=== PATIENT | female | born 2000 | race African-American/Black ===

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

== ENCOUNTER 2019-01-03 12:56 | Emergency (ER) | payer MEDICAID, OTHER ==
[~2019-01-03] VITALS: Ht 165.1 cm; Wt 52.2 kg
[2019-01-03 14:31] LABS: BILIRUBIN,URINE NEGATIVE (NEG); CLARITY,URINE CLEAR; COLOR,URINE YELLOW; NITRITE,URINE NEGATIVE (NEG); PH,URINE 7.5; PROTEIN,URINE NEGATIVE (NEG-TRACE)
[2019-01-03 14:40] LABS: SQUAMOUS EPITHELIAL CELL,UR MOD /LPF
[2019-01-03 14:41] LABS: BACTERIA,URINE MODERATE /HPF (0-FEW); RBC,URINE 0 /HPF (0-2)
--- NOTE | 2019-01-03 14:41 | PHYS DOC ---
Past Medical History Past Medical History: No Pertinent History, Other Additional Past Medical Histor: PRIOR DEMISE AT 5 MONTHS Smoking: Quit Less Than 1 Year Alcohol Use: None Drug Use: None Adult General Chief Complaint Chief Complaint: ABDOMINAL PAIN IN HPI HPI Patient is a 18 year old female presents with abdominal pain has been ongoing since last night. The patient states that she has proximal with 15 weeks . Denies any vaginal bleeding or vaginal discharge. Reports her pain is 9 out of 10 in severity sharp. Has not Taken anything for it at home. Review of Systems Review of Systems Constitutional: Denies fever or chills [] Eyes: Denies change in visual acuity, redness, or eye pain [] HENT: Denies nasal congestion or sore throat [] Respiratory: Denies cough or shortness of breath [] Cardiovascular: No additional information not addressed in HPI [] GI: Reports abdominal pain denies nausea, vomiting, bloody stools and diarrhea [] : Denies dysuria or hematuria [] Musculoskeletal: Denies back pain or joint pain [] Integument: Denies rash or skin lesions [] Neurologic: Denies headache, focal weakness or sensory changes [] Endocrine: Denies polyuria or polydipsia [] Complete systems were reviewed and found to be within normal limits, except as documented in this note. Current Medications Current Medications Current Medications Medications (Trade) Dose Ordered Sig/Jaxon Start Time Stop Time Status Last Admin Dose Admin Acetaminophen (Tylenol) 1,000 mg 1X ONCE 01/03/19 15:00 01/03/19 15:01 DC 01/03/19 15:26 1,000 MG Allergies Allergies Allergies Coded Allergies Type Severity Reaction Last Updated Verified Penicillins Allergy Intermediate Hives 08/18/18 Yes Physical Exam Physical Exam Constitutional: Well developed, well nourished, no acute distress, non-toxic appearance. [] HENT: Normocephalic, atraumatic, bilateral external ears normal, oropharynx moist, no oral exudates, nose normal. [] Eyes: PERRLA, EOMI, conjunctiva normal, no discharge. [] Neck: Normal range of motion, no tenderness, supple, no stridor. [] Cardiovascular:Heart rate regular rhythm, no murmur [] Lungs & Thorax: Bilateral breath sounds clear to auscultation [] Abdomen: Bowel sounds normal, soft, right lower quadrant tenderness, no masses, no pulsatile masses. [] Skin: Warm, dry, no erythema, no rash. [] Back: No tenderness, no CVA tenderness. [] Extremities: No tenderness, no cyanosis, no clubbing, ROM intact, no edema. [] Neurologic: Alert and oriented X 3, normal motor function, normal sensory function, no focal deficits noted. [] Psychologic: Affect normal, judgement normal, mood normal. [] Current Patient Data Vital Signs Vital Signs Date Time Temp Pulse Resp B/P (MAP) Pulse Ox O2 Delivery O2 Flow Rate FiO2 01/03/19 13:49 99.7 75 16 98/44 (62) 100 Room Air 99.7 Lab Values Laboratory Tests Test 01/03/19 13:55 01/03/19 14:40 Urine Collection Type Unknown Urine Color Yellow Urine Clarity Clear Urine pH 7.5 Urine Specific [place] 1.020 Urine Protein Negative mg/dL (NEG-TRACE) Urine Glucose (UA) Negative mg/dL (NEG) Urine Ketones (Stick) Negative mg/dL (NEG) Urine Blood Negative (NEG) Urine Nitrite Negative (NEG) Urine Bilirubin Negative (NEG) Urine Urobilinogen Dipstick 1.0 mg/dL (0.2 mg/dL) Urine Leukocyte Esterase Negative (NEG) Urine RBC 0 /HPF (0-2) Urine WBC 1-4 /HPF (0-4) Urine Squamous Epithelial Cells Mod /LPF Urine Bacteria Moderate /HPF (0-FEW) Urine Mucus Marked /LPF White Blood Count 7.8 x10^3/uL (4.0-11.0) Red Blood Count 3.34 x10^6/uL (3.50-5.40) L Hemoglobin 11.0 g/dL (12.0-15.5) L Hematocrit 31.6 % (36.0-47.0) L Mean Corpuscular Volume 94 fL (79-100) Mean Corpuscular Hemoglobin 33 pg (25-35) Mean Corpuscular Hemoglobin Concent 35 g/dL (31-37) Red Cell Distribution Width 13.2 % (11.5-14.5) Platelet Count 210 x10^3/uL (140-400) Neutrophils (%) (Auto) 72 % (31-73) Lymphocytes (%) (Auto) 20 % (24-48) L Monocytes (%) (Auto) 6 % (0-9) Eosinophils (%) (Auto) 2 % (0-3) Basophils (%) (Auto) 1 % (0-3) Neutrophils # (Auto) 5.6 x10^3uL (1.8-7.7) Lymphocytes # (Auto) 1.6 x10^3/uL (1.0-4.8) Monocytes # (Auto) 0.4 x10^3/uL (0.0-1.1) Eosinophils # (Auto) 0.2 x10^3/uL (0.0-0.7) Basophils # (Auto) 0.0 x10^3/uL (0.0-0.2) Maternal Serum HCG Beta Subunit 25105 mIU/mL (0-5) H Sodium Level 138 mmol/L (136-145) Potassium Level 3.4 mmol/L (3.5-5.1) L Chloride Level 105 mmol/L (98-107) Carbon Dioxide Level 25 mmol/L (21-32) Anion Gap 8 (6-14) Blood Urea Nitrogen 7 mg/dL (7-20) Creatinine 0.6 mg/dL (0.6-1.0) Estimated GFR (Cockcroft-Gault) 155.8 BUN/Creatinine Ratio 12 (6-20) Glucose Level 76 mg/dL (70-99) Calcium Level 8.7 mg/dL (8.5-10.1) Total Bilirubin 0.4 mg/dL (0.2-1.0) Aspartate Amino Transferase (AST) 11 U/L (15-37) L Alanine Aminotransferase (ALT) 11 U/L (14-59) L Alkaline Phosphatase 24 U/L (46-116) L Total Protein 6.4 g/dL (6.4-8.2) Albumin 3.0 g/dL (3.4-5.0) L Albumin/Globulin Ratio 0.9 (1.0-1.7) L Laboratory Tests 01/03/19 14:40 Laboratory Tests 01/03/19 14:40 EKG EKG [] Radiology/Procedures Radiology/Procedures [facility] [address] [place] [address] IMAGING REPORT Signed PATIENT: TRAVON DIAS ACCOUNT: [id number] : 2000 LOCATION: ER AGE: 18 SEX: F EXAM STATUS: REG ER ORD. PHYSICIAN: KOFI BURK APRN REASON: Right Side abd pain PROCEDURE: PREG MORE THAN OR EQ TO 14 WKS Examination: RIGHT LOWER QUANDRANT, PREG MORE THAN OR EQ TO 14 WKS History: Right-sided abdominal pain Comparison/Correlation: 12/01/2018 first trimester ultrasound exam FINDINGS: Single living intrauterine gestation with breech lie noted. heart rate of 158 bpm is present. Grade 1 placenta is noted at the anterior wall with fundal location. measurements include: Biparietal diameter: 3 cm corresponding to 15 weeks 4 days. Femur length of 1.82 cm corresponding to 15 weeks 3 days. Head circumference of 11.32 cm corresponding to 15 weeks 4 days. Abdominal circumference of 10 cm corresponding to 16 weeks. Age by 4 parameters corresponds to 15 weeks 5 day. EDC by average age is 06/23/2019. Gestational age by last menstrual period is 15 weeks 4 days. Cephalic index of 82.5. H/A ratio is 1.13. FL/BPD is 60.1. FL/ AC is 18.2. Imaging of the maternal right lower quadrant is unremarkable with no appendix visualized. IMPRESSION: Single living breech lie intrauterine gestation corresponding to 15 weeks 5 days by average ultrasound age. This approximates age by last menstrual period. Adequate and symmetric interval growth is noted since the prior exam. There is no appendix visualized. No suspicious maternal right lower quadrant findings. Consider further imaging assessment if clinical concern persists. Electronically signed by: Lenin Guerra MD (01/03/2019 3:01 PM) [facility] DICTATED and SIGNED BY: LENIN GUERRA MD DATE: 01/03/19 1501 [] PATIENT: TRAVON DIAS ACCOUNT: [id number] : 2000 LOCATION: ER AGE: 18 SEX: F EXAM STATUS: REG ER ORD. PHYSICIAN: KOFI BURK APRN REASON: abd pain PROCEDURE: RIGHT LOWER QUANDRANT Examination: RIGHT LOWER QUANDRANT, PREG MORE THAN OR EQ TO 14 WKS History: Right-sided abdominal pain Comparison/Correlation: 12/01/2018 first trimester ultrasound exam FINDINGS: Single living intrauterine gestation with breech lie noted. heart rate of 158 bpm is present. Grade 1 placenta is noted at the anterior wall with fundal location. measurements include: Biparietal diameter: 3 cm corresponding to 15 weeks 4 days. Femur length of 1.82 cm corresponding to 15 weeks 3 days. Head circumference of 11.32 cm corresponding to 15 weeks 4 days. Abdominal circumference of 10 cm corresponding to 16 weeks. Age by 4 parameters corresponds to 15 weeks 5 day. EDC by average age is 06/23/2019. Gestational age by last menstrual period is 15 weeks 4 days. Cephalic index of 82.5. H/A ratio is 1.13. FL/BPD is 60.1. FL/ AC is 18.2. Imaging of the maternal right lower quadrant is unremarkable with no appendix visualized. IMPRESSION: Single living breech lie intrauterine gestation corresponding to 15 weeks 5 days by average ultrasound age. This approximates age by last menstrual period. Adequate and symmetric interval growth is noted since the prior exam. There is no appendix visualized. No suspicious maternal right lower quadrant findings. Consider further imaging assessment if clinical concern persists. Electronically signed by: Lenin Guerra MD (01/03/2019 3:01 PM) [facility] DICTATED and SIGNED BY: LENIN GUERRA MD DATE: 01/03/19 1504 Course & Med Decision Making Course & Med Decision Making Pertinent Labs and Imaging studies reviewed. (See chart for details) FHT's are 160's, no vaginal bleeding, sharp abdominal pain since last night. Will get labs, ultrasound, urine. Patient is agreeable. Labs are unremarkable. Ultrasound is negative and shows no intrauterine abnormalities. Appendix is not visualized. Will do observation over further imaging as the risk to the fetus outweighs benefit. WBC is not elevated, patient is afebrile. Will have follow up with OB and return for any further issues. Dragon Disclaimer Dragon Disclaimer This electronic medical record was generated, in whole or in part, using a voice recognition dictation system. Departure Departure Impression: Primary Impression: Abdominal pain affecting Disposition: HOME, SELF-CARE Condition: STABLE Referrals: NO PCP (PCP) Patient Instructions: Abdominal Pain During Additional Instructions: Thank you for visiting [facility]. We appreciate you trusting us with your care. If any additional problems come up don't hesitate to return to visit us. Please follow up with your primary care provider so they can plan additional care if needed and know about the problem that you had. If symptoms worsen come back to the Emergency Department. Any concerning symptoms that start such as chest pain, shortness of Air, weakness or numbness on one side of the body, running high fevers or any other concerning symptoms return to the ER. Please follow up with OB on Tuesday. I have attached your labs below. Laboratory Tests [place] [address] mIU/mL 01/03/19 13:55 01/03/19 14:40 Urine Collection Type Unknown Urine Color Yellow Urine Clarity Clear Urine pH 7.5 Urine Specific [place] 1.020 Urine Protein Negative mg/dL (NEG-TRACE) Urine Glucose (UA) Negative mg/dL (NEG) Urine Ketones (Stick) Negative mg/dL (NEG) Urine Blood Negative (NEG) Urine Nitrite Negative (NEG) Urine Bilirubin Negative (NEG) Urine Urobilinogen Dipstick 1.0 mg/dL (0.2 mg/dL) Urine Leukocyte Esterase Negative (NEG) Urine RBC 0 /HPF (0-2) Urine WBC 1-4 /HPF (0-4) Urine Squamous Epithelial Cells Mod /LPF Urine Bacteria Moderate /HPF (0-FEW) Urine Mucus Marked /LPF White Blood Count 7.8 x10^3/uL (4.0-11.0) Red Blood Count 3.34 x10^6/uL (3.50-5.40) L Hemoglobin 11.0 g/dL (12.0-15.5) L Hematocrit 31.6 % (36.0-47.0) L Mean Corpuscular Volume 94 fL (79-100) Mean Corpuscular Hemoglobin 33 pg (25-35) Mean Corpuscular Hemoglobin Concent 35 g/dL (31-37) Red Cell Distribution Width 13.2 % (11.5-14.5) Platelet Count 210 x10^3/uL (140-400) Neutrophils (%) (Auto) 72 % (31-73) Lymphocytes (%) (Auto) 20 % (24-48) L Monocytes (%) (Auto) 6 % (0-9) Eosinophils (%) (Auto) 2 % (0-3) Basophils (%) (Auto) 1 % (0-3) Neutrophils # (Auto) 5.6 x10^3uL (1.8-7.7) Lymphocytes # (Auto) 1.6 x10^3/uL (1.0-4.8) Monocytes # (Auto) 0.4 x10^3/uL (0.0-1.1) Eosinophils # (Auto) 0.2 x10^3/uL (0.0-0.7) Basophils # (Auto) 0.0 x10^3/uL (0.0-0.2) Sodium Level 138 mmol/L (136-145) Potassium Level 3.4 mmol/L (3.5-5.1) L Chloride Level 105 mmol/L (98-107) Carbon Dioxide Level 25 mmol/L (21-32) Anion Gap 8 (6-14) Blood Urea Nitrogen 7 mg/dL (7-20) Creatinine 0.6 mg/dL (0.6-1.0) Estimated GFR (Cockcroft-Gault) 155.8 BUN/Creatinine Ratio 12 (6-20) Glucose Level 76 mg/dL (70-99) Calcium Level 8.7 mg/dL (8.5-10.1) Total Bilirubin 0.4 mg/dL (0.2-1.0) Aspartate Amino Transferase (AST) 11 U/L (15-37) L Alanine Aminotransferase (ALT) 11 U/L (14-59) L Alkaline Phosphatase 24 U/L (46-116) L Total Protein 6.4 g/dL (6.4-8.2) Albumin 3.0 g/dL (3.4-5.0) L Albumin/Globulin Ratio 0.9 (1.0-1.7) L Laboratory Tests 01/03/19 14:40 KOFI BURK APRN Jan 03, 2019 14:41
[2019-01-03 14:48] LABS: BASO % 1 % (0-3); EOS # 0.2 x10^3/uL (0.0-0.7); EOS % 2 % (0-3); HEMATOCRIT 31.6 % (36.0-47.0); LYMPH # 1.6 x10^3/uL (1.0-4.8); LYMPH % 20 % (24-48); MEAN CORPUSCULAR HEMOGLOBIN 33 pg (25-35); MEAN CORPUSCULAR HGB CONC 35 g/dL (31-37); MEAN CORPUSCULAR VOLUME 94 fL (79-100); MONO # 0.4 x10^3/uL (0.0-1.1); MONO % 6 % (0-9); NEUT # 5.6 x10^3uL (1.8-7.7); NEUT % 72 % (31-73); PLATELET COUNT 210 x10^3/uL (140-400); RED BLOOD COUNT 3.34 x10^6/uL (3.50-5.40); RED CELL DISTRIBUTION WIDTH 13.2 % (11.5-14.5); WHITE BLOOD COUNT 7.8 x10^3/uL (4.0-11.0)
[2019-01-03] MEDS ORDERED: ACETAMINOPHEN 500 MG TABLET PO ONE (15:00)
--- NOTE | 2019-01-03 15:03 | RAD ---
Examination: RIGHT LOWER QUANDRANT, PREG MORE THAN OR EQ TO 14 WKS History: Right-sided abdominal pain Comparison/Correlation: 12/01/2018 first trimester ultrasound exam FINDINGS: Single living intrauterine gestation with breech lie noted. heart rate of 158 bpm is present. Grade 1 placenta is noted at the anterior wall with fundal location. measurements include: Biparietal diameter: 3 cm corresponding to 15 weeks 4 days. Femur length of 1.82 cm corresponding to 15 weeks 3 days. Head circumference of 11.32 cm corresponding to 15 weeks 4 days. Abdominal circumference of 10 cm corresponding to 16 weeks. Age by 4 parameters corresponds to 15 weeks 5 day. EDC by average age is 06/23/2019. Gestational age by last menstrual period is 15 weeks 4 days. Cephalic index of 82.5. H/A ratio is 1.13. FL/BPD is 60.1. FL/ AC is 18.2. Imaging of the maternal right lower quadrant is unremarkable with no appendix visualized. IMPRESSION: Single living breech lie intrauterine gestation corresponding to 15 weeks 5 days by average ultrasound age. This approximates age by last menstrual period. Adequate and symmetric interval growth is noted since the prior exam. There is no appendix visualized. No suspicious maternal right lower quadrant findings. Consider further imaging assessment if clinical concern persists. Electronically signed by: Lenin Boothe MD (01/03/2019 3:01 PM) [facility]
[2019-01-03 15:12] LABS: CALCIUM 8.7 mg/dL (8.5-10.1); CREATININE 0.6 mg/dL (0.6-1.0); GFR 155.8; POTASSIUM 3.4 mmol/L (3.5-5.1)
[2019-01-03 15:17] LABS: ALBUMIN/GLOBULIN RATIO 0.9 (1.0-1.7); TOTAL BILIRUBIN 0.4 mg/dL (0.2-1.0); TOTAL PROTEIN 6.4 g/dL (6.4-8.2)
[2019-01-03 15:33] VITALS: BP 94/55
== END 2019-01-03 15:53 | disposition home or self-care (01) ==
LOC: ER 12:56
DX: O26.892 Other specified pregnancy related conditions, second trimester (principal); R10.31 Right lower quadrant pain; O21.9 Vomiting of pregnancy, unspecified; Z87.891 Personal history of nicotine dependence; Z88.0 Allergy status to penicillin; Z3A.15 15 weeks gestation of pregnancy
CPT/HCPCS: 36415; 76805; 80053; 81001; 84702; 85025; 87086; 93975; 99285-25

== ENCOUNTER 2019-01-07 23:37 | Emergency (ER) | payer MEDICAID ==
[~2019-01-07] VITALS: Ht 167.6 cm; Wt 52.2 kg
[2019-01-07 23:52] VITALS: BP 105/51
--- NOTE | 2019-01-08 01:25 | PHYS DOC ---
Past Medical History Past Medical History: No Pertinent History, Other Additional Past Medical Histor: PRIOR DEMISE AT 5 MONTHS Past Surgical History: No Surgical History Alcohol Use: None Drug Use: None Adult General Chief Complaint Chief Complaint: OTHER COMPLAINTS HPI HPI Patient is a 18 year old f with cc of hasn't felt the baby move throughout the day today just wanted to get her checked out. No pain she is worried she had a demise at 5 months in the past Allergies Allergies Allergies Coded Allergies Type Severity Reaction Last Updated Verified Penicillins Allergy Intermediate Hives 08/18/18 Yes Physical Exam Physical Exam Constitutional: Well developed, well nourished, no acute distress, non-toxic appearance. [] HENT: Normocephalic, atraumatic, bilateral external ears normal, oropharynx moist, no oral exudates, nose normal. [] Eyes: PERRLA, EOMI, conjunctiva normal, no discharge. [] Neck: Normal range of motion, no tenderness, supple, no stridor. [] Pulmonary: Normal respiratory effort no increased work of breathing no obvious chest wall trauma Abdomen: Bowel sounds normal, soft, gravid nontender Skin: Warm, dry, no erythema, no rash. [] Back: No tenderness, no CVA tenderness. [] Extremities: No tenderness, no cyanosis, no clubbing, ROM intact, no edema. [] Neurologic: Alert and oriented X 3, normal motor function, normal sensory function, no focal deficits noted. [] Psychologic: Affect normal, judgement normal, mood normal. [] Current Patient Data Vital Signs Vital Signs Date Time Temp Pulse Resp B/P (MAP) Pulse Ox O2 Delivery O2 Flow Rate FiO2 01/07/19 23:52 98.4 102 16 105/51 (69) 97 Room Air 98.4 Lab Values Laboratory Tests Test 01/07/19 23:48 POC Urine HCG, Qualitative Hcg positive (Negative) EKG EKG [] Radiology/Procedures Radiology/Procedures [] Course & Med Decision Making Course & Med Decision Making Pertinent Labs and Imaging studies reviewed. (See chart for details) 18-year-old female presenting with the worried that the baby wasn't moving. I did a bedside ultrasound there is good movement there is a good heart rate in the 160s The abdomen is nontender patient was reassured and discharged in stable condition Dragon Disclaimer Dragon Disclaimer This electronic medical record was generated, in whole or in part, using a voice recognition dictation system. Departure Departure Impression: Primary Impression: Second trimester Disposition: 01 HOME, SELF-CARE Condition: STABLE Additional Instructions: the baby is moving well and has a good heart beat. please come back for any new symptoms or concerns. RADHA EDGE MD Jan 08, 2019 01:25
== END 2019-01-08 00:21 | disposition home or self-care (01) ==
LOC: ER 23:37
DX: Z34.82 Encounter for supervision of other normal pregnancy, second trimester (principal); Z3A.00 Weeks of gestation of pregnancy not specified; Z88.0 Allergy status to penicillin
CPT/HCPCS: 81025; 99284

== ENCOUNTER 2019-01-14 15:58 | Emergency (ER) | payer MEDICAID ==
[~2019-01-14] VITALS: Ht 165.1 cm; Wt 52.2 kg
[2019-01-14 16:19] VITALS: BP 109/55
[2019-01-14 16:32] LABS: BILIRUBIN,URINE NEGATIVE (NEG); CLARITY,URINE CLEAR; COLOR,URINE YELLOW; NITRITE,URINE NEGATIVE (NEG); PH,URINE 6.5; PROTEIN,URINE NEGATIVE (NEG-TRACE); UROBILINOGEN,URINE 0.2 mg/dL (0.2 mg/dL)
[2019-01-14 16:44] LABS: BACTERIA,URINE MANY /HPF (0-FEW); RBC,URINE OCC /HPF (0-2); SQUAMOUS EPITHELIAL CELL,UR MANY /LPF
--- NOTE | 2019-01-14 17:19 | PHYS DOC ---
Past Medical History Past Medical History: No Pertinent History, Other Additional Past Medical Histor: PRIOR DEMISE AT 5 MONTHS Past Surgical History: No Surgical History Alcohol Use: None Drug Use: None Adult General Chief Complaint Chief Complaint: DIARRHEA HPI HPI Patient is a 18 year old female 2 para 1 currently 17 weeks presenting to the ED today complaining of diarrhea for 3 days. Patient denies any abdominal pain. Denies any cramping. Denies any nausea vomiting. She states she could not feel the baby since yesterday. She states she's been following up with her [employer] at [place] for her . Denies any vaginal bleeding. She states she believes she it is a virus Review of Systems Review of Systems Constitutional: Denies fever or chills [] Eyes: Denies change in visual acuity, redness, or eye pain [] HENT: Denies nasal congestion or sore throat [] Respiratory: Denies cough or shortness of breath [] Cardiovascular: No additional information not addressed in HPI [] GI: Reports diarrhea. Reports . Denies abdominal pain, nausea, vomiting, bloody stools or diarrhea [] : Denies dysuria or hematuria [] Musculoskeletal: Denies back pain or joint pain [] Integument: Denies rash or skin lesions [] Neurologic: Denies headache, focal weakness or sensory changes [] All other systems were reviewed and found to be within normal limits, except as documented in this note. Allergies Allergies Allergies Coded Allergies Type Severity Reaction Last Updated Verified Penicillins Allergy Intermediate Hives 08/18/18 Yes Physical Exam Physical Exam Constitutional: Well developed, well nourished, no acute distress, non-toxic appearance. [] HENT: Normocephalic, atraumatic, bilateral external ears normal, oropharynx moist, no oral exudates, nose normal. [] Eyes: PERRLA, EOMI, conjunctiva normal, no discharge. [] Neck: Normal range of motion, no tenderness, supple, no stridor. [] Cardiovascular:Heart rate regular rhythm, no murmur [] Lungs & Thorax: Bilateral breath sounds clear to auscultation [] Abdomen: Gravid abdomen. Bowel sounds normal, soft, no tenderness, no masses, no pulsatile masses. [] Skin: Warm, dry, no erythema, no rash. [] Back: No tenderness, no CVA tenderness. [] Extremities: No tenderness, no cyanosis, no clubbing, ROM intact, no edema. [] Neurologic: Alert and oriented X 3, normal motor function, normal sensory function, no focal deficits noted. [] Psychologic: Affect normal, judgement normal, mood normal. [] Current Patient Data Vital Signs Vital Signs Date Time Temp Pulse Resp B/P (MAP) Pulse Ox O2 Delivery O2 Flow Rate FiO2 01/14/19 16:19 99.2 72 16 109/55 (73) 100 Room Air 99.2 Lab Values Laboratory Tests Test 01/14/19 16:20 Urine Collection Type Unknown Urine Color Yellow Urine Clarity Clear Urine pH 6.5 Urine Specific [place] 1.020 Urine Protein Negative mg/dL (NEG-TRACE) Urine Glucose (UA) Negative mg/dL (NEG) Urine Ketones (Stick) Negative mg/dL (NEG) Urine Blood Negative (NEG) Urine Nitrite Negative (NEG) Urine Bilirubin Negative (NEG) Urine Urobilinogen Dipstick 0.2 mg/dL (0.2 mg/dL) Urine Leukocyte Esterase Small (NEG) Urine RBC Occ /HPF (0-2) Urine WBC 5-10 /HPF (0-4) Urine Squamous Epithelial Cells Many /LPF Urine Bacteria Many /HPF (0-FEW) Urine Mucus Marked /LPF EKG EKG [] Radiology/Procedures Radiology/Procedures [] Course & Med Decision Making Course & Med Decision Making Pertinent Labs and Imaging studies reviewed. (See chart for details) This is a 18-year-old female patient 2 para 1 currently 17 weeks presenting to the ED with diarrhea for 3 days. Patient was also concerned she could not feed her baby. Yesterday. heart tones in the ED 155. Urine analysis is contaminated. Patient was discharged to home. Instructed to push fluids. Diarrhea could be viral or food poisoning among other causes. Follow-up with her [employer] in the course of this week. Provided return precautions. Dragon Disclaimer Dragon Disclaimer This electronic medical record was generated, in whole or in part, using a voice recognition dictation system. Departure Departure Impression: Primary Impression: Diarrhea Disposition: HOME, SELF-CARE Condition: STABLE Referrals: NO PCP (PCP) Follow-up with your [employer] or primary care doctor in the course of this week or next week Patient Instructions: Diarrhea, [id number] Additional Instructions: You were evaluated in the emergency for diarrhea. Maintain good hygiene, push fluids. Follow-up with your [employer] in the course of this week. Please follow-up with your own primary care doctor in the course of this week. Problem Qualifiers Primary Impression: Diarrhea Diarrhea type: unspecified type Qualified Codes: R19.7 - Diarrhea, unspecified JAX GUZMAN [employer] Jan 14, 2019 17:19
== END 2019-01-14 17:27 | disposition home or self-care (01) ==
LOC: ER 15:58
DX: O26.892 Other specified pregnancy related conditions, second trimester (principal); R19.7 Diarrhea, unspecified; Z3A.17 17 weeks gestation of pregnancy; Z88.0 Allergy status to penicillin
CPT/HCPCS: 81001; 99283

== ENCOUNTER 2019-03-21 15:08 | Observation (INO) | payer MEDICAID ==
[2019-03-21 16:00] LABS: BILIRUBIN,URINE NEGATIVE (NEG); CLARITY,URINE CLEAR; COLOR,URINE YELLOW; NITRITE,URINE NEGATIVE (NEG); PROTEIN,URINE NEGATIVE (NEG-TRACE)
[2019-03-21 16:05] LABS: BACTERIA,URINE MANY /HPF (0-FEW); SQUAMOUS EPITHELIAL CELL,UR MANY /LPF
[2019-03-21 16:06] LABS: RBC,URINE OCC /HPF (0-2)
[2019-03-21 16:07] LABS: BARBITURATES NEG (NEG); BENZODIAZEPINES NEG (NEG); CANNABINOIDS NEG (NEG); COCAINE NEG (NEG); METHADONE NEG (NEG); OPIATES NEG (NEG); PHENCYCLIDINE NEG (NEG)
[2019-03-21 16:09] LABS: AMPHETAMINE/METHAMPHETAMINE NEG (NEG)
== END 2019-03-21 18:23 | disposition home or self-care (01) ==
LOC: 3 SO LND 15:08
PROVIDERS: ADMIT Specialist; ATTEND Specialist
DX: O99.89 Other specified diseases and conditions complicating pregnancy, childbirth and the puerperium (principal); M54.30 Sciatica, unspecified side; M53.3 Sacrococcygeal disorders, not elsewhere classified; Z3A.26 26 weeks gestation of pregnancy
CPT/HCPCS: 80307; 81001; 87086; G0378; G0379